=== PATIENT | male | born 2000 | race Two or more races ===

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

== ENCOUNTER 2024-01-31 08:11 | Emergency (ER) | payer OTHER ==
[~2024-01-31] VITALS: Ht 170.2 cm; Wt 77.4 kg
[2024-01-31 10:58] VITALS: BP 136/90; TEMP 98.5; O2SAT 97
== END 2024-01-31 11:23 | disposition home or self-care (01) ==
LOC: M ED 08:11
DX: S00.01XA Abrasion of scalp, initial encounter (principal); F10.10 Alcohol abuse, uncomplicated; W01.198A Fall on same level from slipping, tripping and stumbling with subsequent striking against other object, initial encounter; Y92.410 Unspecified street and highway as the place of occurrence of the external cause; Y93.89 Activity, other specified; Y99.9 Unspecified external cause status

== ENCOUNTER → 2024-03-10 | Outpatient (CLI) | payer OTHER ==
[~2024-03-10] MED LIST: GASTROGRAFIN SOLUTION 30ML As Ordered ONE; ISOVUE-370 76% 100ML VIAL As Ordered ONE
== END ==
LOC: M RAD 13:56
PROVIDERS: ATTEND Internal Medicine Hematology & Oncology
DX: R59.0 Localized enlarged lymph nodes (principal)
CPT/HCPCS: 70491; 71260; 74177; Q9963; Q9967

== ENCOUNTER → 2024-11-30 | Outpatient (CLI) | payer OTHER | LOC: M RAD 12:36 | DX: R59.9 Enlarged lymph nodes, unspecified (principal) ==